=== PATIENT | female | born 1965 | race Caucasian/White ===

== ENCOUNTER → 2021-04-08 | Day surgery (SDC) | payer OTHER ==
[~2021-04-08] MED LIST: ALLEGRA-D 24 H1 EACH PO; ASPIRIN81 MG PO; ATENOLOL50 MG PO; CITRACAL + D E1 EACH PO; DIOVAN80 MG PO; FLONASE ALLERG9.9 ML INH; FUROSEMIDE40 MG PO; GLUCAGON FOR INJ 1 MG VIAL ONE; LIDOCAINE HCL 2% LOCAL INJ 5 ML SDV VIAL INJ ONE; LIPITOR10 MG PO; PRILOSEC OTC20 MG PO; PROPOFOL IV EMULSION 10 MG/ML 20 ML VIAL ONE; VENTOLIN HFA18 GM INH; VIT B12 PO; VIT C PO; ZINC PO
[2021-04-08 10:48] VITALS: BP 132/68
== END | disposition home or self-care (01) ==
LOC: OR 06:50
PROVIDERS: ATTEND Internal Medicine Gastroenterology
DX: K62.89 Other specified diseases of anus and rectum (principal); D12.2 Benign neoplasm of ascending colon; D12.3 Benign neoplasm of transverse colon; D12.4 Benign neoplasm of descending colon; K57.30 Diverticulosis of large intestine without perforation or abscess without bleeding; K64.8 Other hemorrhoids; K21.9 Gastro-esophageal reflux disease without esophagitis; Z87.19 Personal history of other diseases of the digestive system; I10 Essential (primary) hypertension; E78.6 Lipoprotein deficiency; N20.0 Calculus of kidney; R00.1 Bradycardia, unspecified; I25.10 Atherosclerotic heart disease of native coronary artery without angina pectoris; R06.83 Snoring; M85.80 Other specified disorders of bone density and structure, unspecified site; Z88.0 Allergy status to penicillin; F17.210 Nicotine dependence, cigarettes, uncomplicated; Z01.810 Encounter for preprocedural cardiovascular examination; Z01.812 Encounter for preprocedural laboratory examination; Z20.822 Contact with and (suspected) exposure to COVID-19; Z79.82 Long term (current) use of aspirin; Z79.899 Other long term (current) drug therapy; Z68.41 Body mass index [BMI] 40.0-44.9, adult
CPT/HCPCS: 45380; 45385; 93005; J1610; J2001; J2704; U0002; 45378; 45384

== ENCOUNTER 2021-04-12 23:53 | Emergency (ER) | payer OTHER ==
[~2021-04-12] VITALS: Ht 162.6 cm; Wt 116.1 kg
[~2021-04-12 23:53] MED LIST changes: -GLUCAGON FOR INJ 1 MG VIAL ONE; -LIDOCAINE HCL 2% LOCAL INJ 5 ML SDV VIAL INJ ONE; -PROPOFOL IV EMULSION 10 MG/ML 20 ML VIAL ONE
[2021-04-13 01:04] LABS: BASOPHILS # (AUTO) 0.1 (0.0-0.1); BASOPHILS % 0.4 % (0.0-1.0); EOSINOPHILS # (AUTO) 0.3 (0.0-0.4); EOSINOPHILS % 1.9 % (0.0-6.0); HEMOGLOBIN 13.3 g/dL (12.0-16.0); LYMPHOCYTES # (AUTO) 4.2 (1.0-3.2); LYMPHOCYTES % 27.9 % (18.0-39.1); MEAN CORPUSCULAR HEMOGLOBIN 30.3 pg (28-32); MEAN CORPUSCULAR HGB CONC 31.7 g/dL (31-35); MEAN CORPUSCULAR VOLUME 95.7 fL (81-99); NEUTROPHILS # (AUTO) 9.3 (2.1-6.9); NEUTROPHILS % 62.4 % (38.7-80.0); PLATELET COUNT 342 x10e3/uL (140-360); RED BLOOD COUNT 4.39 x10e6/uL (3.6-5.1); RED CELL DISTRIBUTION WIDTH 14.5 % (11.7-14.4)
[2021-04-13 01:15] LABS: CLARITY,URINE CLEAR (CLEAR); COLOR,URINE YELLOW (YELLOW); KETONES,URINE NEGATIVE (NEGATIVE); LEUKOCYTE ESTERASE ,URINE NEGATIVE (NEGATIVE); NITRITE,URINE NEGATIVE (NEGATIVE); PROTEIN,URINE DIPSTICK NEGATIVE (NEGATIVE); URINE UROBILINOGEN 0.2 mg/dL (0.2 - 1)
[2021-04-13 01:22] LABS: BACTERIA,URINE FEW /HPF; EPITHELIAL CELLS,URINE MODERATE /LPF; WBC,URINE (MAN) 0-5 /HPF (0-5)
[2021-04-13 01:28] LABS: ALBUMIN 3.6 g/dL (3.5-5.0); ALBUMIN/GLOBULIN RATIO 0.9 (0.8-2.0); ANION GAP 15.9 mmol/L (8-16); CALCIUM 9.3 mg/dL (8.4-10.2); CREATININE, SERUM 0.88 mg/dL (0.57-1.11); POTASSIUM 3.9 mmol/L (3.5-5.1)
[2021-04-13] MEDS ORDERED: SODIUM CHLORIDE 0.9% 50ML 50 ML ONE (01:53)
[2021-04-13] MEDS ORDERED: IOPAMIDOL 370 MG/ML 200 ML INFUS..BTL INJ ONE (01:54)
[2021-04-13 02:59] LABS: INR 0.87; PROTHROMBIN TIME 12.5 seconds (11.9-14.5)
== END 2021-04-13 03:20 | disposition home or self-care (01) ==
LOC: ER 04-13 00:17
DX: K91.840 Postprocedural hemorrhage of a digestive system organ or structure following a digestive system procedure (principal)
CPT/HCPCS: 36415; 74174; 80053; 81001; 85025; 85610; 99284; Q9967